=== PATIENT | male | born 1995 | race Caucasian/White ===

== ENCOUNTER 2021-03-22 09:33 | Emergency (ER) | payer BC ==
[~2021-03-22] VITALS: Ht 177.8 cm; Wt 79.4 kg
[2021-03-22 10:11] VITALS: BP 137/55
[2021-03-22 10:19] VITALS: BP 137/52
--- NOTE | 2021-03-22 10:25 | ER.PDOC ---
General Chief Complaint: General Complaint Stated Complaint: ABD PAIN TRAVEL OUT OF US: No Time seen by MD: 10:22 Source: patient Exam Limitations: no limitations History of Present Illness Initial Comments This is a 25-year-old male who comes to the emergency department complaining of symptoms of pain with eating, mild nausea and dizziness. He states his pain and dizziness starts before he eats. In the mornings he has a loose morning stool, but no diarrhea. His symptoms have been going on for the past 3 to 6 months. It has been affecting his dinner now which is unusual. He has an appointment with his primary doctor when he gets home to [place]. Allergies: Coded Allergies: No Known Allergies (Unverified , 03/22/21) Past Medical History Medical History: no pertinent history, other (Anxiety) Surgical History: knee Social History Alcohol Use: none Drug Use: none Review of Systems Constitutional: denies no symptoms reported, denies see HPI, denies chills, denies diaphoresis, denies fever, denies malaise, denies weakness, denies other EENTM: denies no symptoms reported, denies see HPI, denies eye pain, denies blurred vision, denies tearing, denies double vision, denies ear pain, denies ear discharge, denies nose pain, denies nose congestion, denies throat pain, denies throat swelling, denies mouth pain, denies mouth swelling, denies other Respiratory: denies no symptoms reported, denies see HPI, denies cough, denies orthopnea, denies shortness of breath, denies stridor, denies wheezing, denies other Cardiovascular: denies no symptoms reported, denies see HPI, denies chest pain, denies edema, denies palpitations, denies syncope, denies other Gastrointestinal: denies no symptoms reported, denies see HPI; abdominal pain; denies constipation, denies diarrhea; nausea; denies vomiting, denies other Genitourinary: denies no symptoms reported, denies see HPI, denies discharge, denies dysuria, denies frequency, denies hematuria, denies pain, denies other Musculoskeletal: denies no symptoms reported, denies see HPI, denies back pain, denies gout, denies joint pain, denies joint swelling, denies muscle pain, denies muscle stiffness, denies neck pain, denies other Skin: denies no symptoms reported, denies see HPI, denies change in color, de nies change in hair/nails, denies dryness, denies lesions, denies lumps, denies rash, denies other Psychiatric/Neurological: denies no symptoms reported, denies see HPI, denies anxiety, denies depressed, denies emotional problems, denies headache, denies numbness, denies paresthesia, denies pre-existing deficit, denies seizure, denies tingling, denies tremors, denies weakness, denies other Hematologic/Lymphatic: denies no symptoms reported, denies see HPI, denies anemia, denies blood clots, denies easy bleeding, denies easy bruising, denies swollen glands, denies other Immunological/Allergic: denies no symptoms reported, denies see HPI, denies food allergy, denies grass allergy, denies mold allergy, denies pollen allergy, denies HIV/AIDS, denies transplant All Other Systems: Reviewed and Negative Physical Exam General Appearance: No Apparent Distress EENT: nml ENT inspection Neck: Normal Inspection Respiratory: lungs clear, normal breath sounds, no respiratory distress CVS: reg rate & rhythm, no murmur, no gallop, pulses nml, nml capillary refill Gastrointestinal: Normal Bowel Sounds, No Organomegaly, No Pulsatile Mass, Non Tender Back: Normal Inspection Extremities: Normal Inspection Neurologic/Psychiatric: No Motor/Sensory Deficits Skin: Normal Color, Warm/Dry Lymphatic: No Adenopathy Results/Orders Results/Orders Orders - SAUL WASHINGTON MD Cbc With Auto Diff (03/22/21 10:21) Comprehensive Metabolic Panel (03/22/21 10:21) Helicobacter Pylori (03/22/21 10:21) Vital Signs Date Time Temp Pulse Resp B/P (MAP) Pulse Ox O2 Delivery O2 Flow Rate FiO2 03/22/21 10:19 98.5 81 18 137/52 (80) 99 Room Air 03/22/21 10:11 98.5 81 18 99 03/22/21 10:11 98.5 81 18 Laboratory Tests Test 03/22/21 10:33 White Blood Count 6.2 10^3/uL (4.5-11.0) Red Blood Count 5.76 10^6/uL (4.50-5.90) Hemoglobin 15.7 g/dL (13.9-16.3) Hematocrit 47.3 % (37.0-53.0) Mean Corpuscular Volume 82.1 fL (78-100) Mean Corpuscular Hemoglobin 27.3 pg (26-34) Mean Corpuscular Hemoglobin Concent 33.2 g/dL (33-36.5) Red Cell Distribution Width 12.7 % (11.5-14.5) Platelet Count 311 10^3/uL (150-400) Mean Platelet Volume 8.8 fL (7.8-11.0) Neutrophils (%) (Auto) 70.9 % (41.0-85.0) Lymphocytes (%) (Auto) 19.2 % (24.0-44.0) L Monocytes (%) (Auto) 5.7 % (5.0-12.0) Neutrophils # (Auto) 4.4 10^3/uL (1.8-7.7) Lymphocytes # (Auto) 1.18 10^3/uL1 (1.0-4.8) Monocytes # (Auto) 0.4 10^3/uL (0.3-0.8) Absolute Immature Granulocyte (auto 0 10^3 u/L (0-2) Absolute Eosinophils (auto) 0.2 10^3/uL (0.0-0.2) Immature Granulocytes % 0.00 % (0.00-0.50) Eosinophils % 3.9 % (0.0-5.0) Basophils % 0.3 % (0.0-0.2) H Basophils # 0.0 10^3/uL (0.0-0.1) Sodium Level 141 mmol/L (132-145) Potassium Level 4.0 mmol/L (3.6-5.2) Chloride Level 106.0 mmol/L (96-109) Carbon Dioxide Level 22.6 mmol/L (20.0-32) Anion Gap 16.4 Blood Urea Nitrogen 14 mg/dL (7-18) Creatinine 1.00 mg/dL (0.59-1.40) Estimated GFR () 110.2 (>/=60) Est GFR (CKD-EPI)(Non-Afr Barbadian) 91.0 (>/=60) BUN/Creatinine Ratio 14.0 Glucose Level 100 mg/dL (70-110) Calcium Level 9.5 mg/dL (8.4-10.5) Total Bilirubin 0.8 mg/dL (0.2-1.0) Aspartate Amino Transferase (AST) 19 U/L (0-35) Alanine Aminotransferase (ALT) 29 U/L (12-78) Alkaline Phosphatase 54 U/L (50-136) Total Protein 7.8 g/dL (6.4-8.2) Albumin 4.5 g/dL (3.4-5.0) Globulin 3.3 Albumin/Globulin Ratio 1.363 Helicobacter pylori Screen NEGATIVE (NEGATIVE) Progress Progress Labs are normal, H. pylori negative. Possible gastritis the patient will need to be seen by a primary doctor with which he has an appointment in [place]. ER DEPART Departure Time of Disposition: 11:28 Disposition: 01 HOME / SELF CARE / HOMELESS Impression: Primary Impression: Gastritis Condition: Stable Patient Instructions: Gastritis, Adult Referrals: PCP,UNKNOWN (PCP) PRIMARY CARE PROVIDER Additional Instructions: Take omeprazole every day for the next 2 weeks. Comments Prescription for omeprazole Duration or Time Spent with Pa: Unknown Problem Qualifiers Primary Impression: Gastritis Chronicity: acute Gastritis bleeding: without bleeding SAUL WASHINGTON MD Mar 22, 2021 10:25
[2021-03-22 10:40] LABS: BASOPHIL % 0.3 % (0.0-0.2); EOSINOPHIL # 0.2 10^3/uL (0.0-0.2); EOSINOPHIL % 3.9 % (0.0-5.0); LYMPHOCYTES # 1.18 10^3/uL1 (1.0-4.8); LYMPHOCYTES % 19.2 % (24.0-44.0); MEAN CORP HGB 27.3 pg (26-34); MONOCYTES # 0.4 10^3/uL (0.3-0.8); MONOCYTES % 5.7 % (5.0-12.0); NEUTROPHIL # 4.4 10^3/uL (1.8-7.7); NEUTROPHILS % 70.9 % (41.0-85.0); PLATELET COUNT 311 10^3/uL (150-400); RED CELL DISTRIBUTION WIDTH 12.7 % (11.5-14.5)
[2021-03-22 10:58] LABS: CARBON DIOXIDE 22.6 mmol/L (20.0-32)
== END 2021-03-22 12:23 | disposition home or self-care (01) ==
LOC: ER 09:33
DX: K29.70 Gastritis, unspecified, without bleeding (principal)
CPT/HCPCS: 36415; 80053; 85025; 86677; 99283